=== PATIENT | male | born 1945 | race Caucasian/White ===

== ENCOUNTER 2018-01-23 09:41 | Emergency (ER) | payer MEDICARE, OTHER ==
--- NOTE | 2018-01-23 10:07 | ER Document Report ---
ED General - General Chief Complaint: Other Stated Complaint: NEEDS LABWORK Time Seen by Provider: 01/23/18 09:54 Mode of Arrival: Ambulatory Information source: Patient Notes: 72-year-old male patient, visiting here from [facility]. Come to the emergency room needing his weekly INR check. He normally checks his INR at home with his home equipment but did not bring it with him. Last INR was 2.6 on 01/15/2018. He has a mechanical aortic valve. He has no complaints. The patient does know underlying medical problems, but cannot remember the names of the medications he takes other than the Coumadin. He was unable to find a list of his medications. TRAVEL OUTSIDE OF THE [place] IN LAST 30 DAYS: No - Related Data Allergies/Adverse Reactions: Penicillins Allergy (Verified 01/23/18 09:44) Home Medications: plavix. coumadin Past Medical History - General Information source: Patient - Social History Smoking Status: Former Smoker - Quit in 1975 Cigarette use (# per day): No Chew tobacco use (# tins/day): No Frequency of alcohol use: None Drug Abuse: None Occupation: Retired Family History: Reviewed & Not Pertinent Patient has suicidal ideation: No Patient has homicidal ideation: No - Past Medical History Cardiac Medical History: Reports: Hx Coronary Artery Disease, Hx Hypercholesterolemia, Hx Hypertension Pulmonary Medical History: Reports: Hx Pneumonia EENT Medical History: Reports: None Neurological Medical History: Reports: None Endocrine Medical History: Reports: Hx Diabetes Mellitus Type 2 - Diet controlled Renal/ Medical History: Reports: None Malignancy Medical History: Reports None GI Medical History: Reports: None Musculoskeletal Medical History: Reports None Skin Medical History: Reports None Psychiatric Medical History: Reports: None Past Surgical History: Reports: Hx Cardiac Surgery - Mechanical aortic valve in 1999, Hx Cholecystectomy, Hx Coronary Artery Bypass Graft - Three-vessel bypass 1999, Hx Coronary Stent - One stent in 2014, Hx Orthopedic Surgery - Lateral release with medial with medial raphe both knees., Other - Eye surgery Review of Systems - Review of Systems Constitutional: No symptoms reported EENT: No symptoms reported Cardiovascular: No symptoms reported Respiratory: No symptoms reported Gastrointestinal: No symptoms reported Genitourinary: No symptoms reported Skin: No symptoms reported Hematologic/Lymphatic: Easy bleeding - Patient is on Coumadin, Easy bruising - Patient is on Coumadin Neurological/Psychological: No symptoms reported Physical Exam - Vital signs Vitals: Temp Pulse Resp BP Pulse Ox 98.1 F 62 14 166/66 H 96 01/23/18 09:48 01/23/18 09:48 01/23/18 09:48 01/23/18 09:48 01/23/18 09:48 Interpretation: Normal - General General appearance: Appears well, Alert In distress: None - HEENT Head: Normocephalic, Atraumatic Eyes: Normal Pupils: PERRL Neck: No: Normal - Respiratory Respiratory status: No respiratory distress Breath sounds: Normal - Cardiovascular Rhythm: Regular Heart sounds: No: Normal auscultation - Mechanical heart valve sounds - Abdominal Inspection: Obese Bowel sounds: Normal Tenderness: Nontender - Back Back: Normal - Extremities General upper extremity: Normal inspection General lower extremity: Normal inspection - Neurological Neuro grossly intact: Yes - Psychological Associated symptoms: Normal affect, Normal mood - Skin Skin Temperature: Warm Skin Moisture: Dry Skin Color: Normal Course - Vital Signs Vital signs: Temp Pulse Resp BP Pulse Ox 98.1 F 62 14 166/66 H 96 01/23/18 09:48 01/23/18 09:48 01/23/18 09:48 01/23/18 09:48 01/23/18 09:48 - Laboratory Laboratory results interpreted by me: 01/23/18 10:14 PT 29.0 H Discharge - Discharge Clinical Impression: Anticoagulation monitoring, INR range 2.5-3.5 Condition: Stable Disposition: HOME, SELF-CARE Additional Instructions: Your INR was 2.59 today.
[2018-01-23 10:34] LABS: INTERNATIONAL RATION (INR) 2.59
[2018-01-23 10:58] VITALS: BP 165/64
== END 2018-01-23 10:59 | disposition home or self-care (01) ==
LOC: ER 09:41
DX: Z51.81 Encounter for therapeutic drug level monitoring (principal); Z79.899 Other long term (current) drug therapy; Z87.891 Personal history of nicotine dependence; I25.10 Atherosclerotic heart disease of native coronary artery without angina pectoris; I10 Essential (primary) hypertension; E11.9 Type 2 diabetes mellitus without complications
CPT/HCPCS: 36415; 85610; 99282